=== PATIENT | female | born 1990 | race African-American/Black ===

== ENCOUNTER 2017-06-08 22:36 | Emergency (ER) | payer BC, OTHER ==
[2017-06-08 22:52] VITALS: BP 105/68; PULSE 90; TEMP 98.3; BMI 29.2
--- NOTE | 2017-06-08 22:56 | PDOC ---
History of Present Illness - General Chief Complaint: Urinary Catheter Problem Stated Complaint: "MY CATHETER HURTS" Time Seen by Provider: 06/08/17 22:41 - History of Present Illness Initial Comments: This otherwise healthy 26-year-old woman presents to weeks after elective umbilical hernia repair/rib resection with pain at the site of abdominal drain. Patient states that the pain occurs when the drain moves; she was seen by her surgeon(in [place]) 5 days ago. At that time, the left-sided Vladimir-Nichols drain was removed but the right LILLI drain was kept in with plan to remove it this Tuesday (2 days from presentation). Patient denies intra-abdominal pain/ nausea/vomiting/fever or chills. She states that the irritation around the right drain is the only PAIN that she has related to the surgery Past History - Past Medical History Allergies/Adverse Reactions: Allergies Allergy/AdvReac Type Severity Reaction Status Date / Time acetaminophen [From Percocet] Allergy Verified 06/08/17 22:44 oxycodone HCl [From Percocet] Allergy Verified 06/08/17 22:44 Home Medications: Ambulatory Orders NK [No Known Home Medication] 06/08/17 - Immunization History Immunization Up to Date: Yes - Psycho/Social/Smoking Cessation Hx Anxiety: No Suicidal Ideation: No Smoking History: Unknown if ever smoked Have you smoked in the past 12 months: No Number of Cigarettes Smoked Daily: 0 Information on smoking cessation initiated: No Hx Alcohol Use: No Drug/Substance Use Hx: No Substance Use Type: None Review of Systems - Review of Systems Able to Perform ROS?: Yes Comments:: 12 point review of systems is negative except for what is noted in the history of present illness *Physical Exam - Vital Signs Last Vital Signs Temp Pulse Resp BP Pulse Ox 98.3 F 90 14 105/68 97 06/08/17 22:47 06/08/17 22:47 06/08/17 22:47 06/08/17 22:47 06/08/17 22:47 - Physical Exam Comments: GENERAL: Adult female, alert and oriented x 3, in no acute distress HEAD: Normal with no signs of trauma. EYES: PERRLA, EOMI, sclera anicteric, conjunctiva clear. ENT: Ears normal, nares patent, oropharynx clear without exudates. Dry mucous membranes. NECK: Normal range of motion, supple without lymphadenopathy, JVD, or masses. LUNGS: Breath sounds equal, clear to auscultation bilaterally. No wheezes, and no crackles. HEART:Regular rate and rhythm, normal S1 and S2 without murmur, rub or gallop. ABDOMEN:.normal bowel sounds No guarding,tenderness or rebound.No masses No distention. Right-sided LILLI drain present. Heavily crusted Steri-Strips around the entry site of drain removed: 3 cm erosion present medial to site No purulent drainage/no induration EXTREMITIES: Normal range of motion, no edema. No clubbing or cyanosis. No erythema, or tenderness. NEUROLOGICAL: Cranial nerves II through XII grossly intact. Normal speech. No focal neurological deficits. MUSCULOSKELETAL: Back non-tender to palpation, no CVA tenderness SKIN: Warm, Dry, normal turgor, no rashes or lesions noted. Medical Decision Making - Medical Decision Making this 26-year-old woman, 14 days s/p umbilical hernia repair, presents with pain around area of right LILLI drain; pain worse with movement of the drain. Exposure of the site reveals superficial breakdown of the skin medial to the entry site. No evidence of wound infection/abscess in the skin breakdown. No other abdominal tenderness or masses. Using sterile normal saline/gauze, skin breakdown cleansed. Bacitracin ointment applied to the skin breakdown. Telfa pad placed around the entry of the LILLI drain followed by paper tape. The drain was anchored to the skin using a tape so that there would be a minimum of traction on the area. Patient was instructed to keep the appointment with her surgeon in 48 hours, for presumed removal of the drain. He mild, she was given material to redress the area around the entry site tomorrow. *DC/Admit/Observation/Transfer Diagnosis at time of Disposition: Vladimir nichols drain site pain - Discharge Dispostion Disposition: HOME Condition at time of disposition: Stable - Patient Instructions Printed Discharge Instructions: How to Care for Your Surgical Drain Additional Instructions: Clean area around drain and redress as needed daily Follow-up with your surgeon on Tuesday, June 10 as scheduled Return to ER if you have severe pain/drainage/fever
== END 2017-06-08 23:31 | disposition home or self-care (01) ==
LOC: FER 22:36
DX: Z48.03 Encounter for change or removal of drains (principal)
CPT/HCPCS: 99282-25